=== PATIENT | male | born 1995 | race African-American/Black ===

== ENCOUNTER → 2017-01-06 | Emergency (ER) | payer OTHER ==
[~2017-01-06] MED LIST: IBUPROFEN 600 MG TAB PO ONE
[2017-01-06 13:33] VITALS: TEMP 98
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
[2017-01-06 14:39] VITALS: BP 141/78; PULSE 67; RESP 16; O2SAT 97
== END | disposition home or self-care (01) ==
LOC: CED 13:14
DX: S16.1XXA Strain of muscle, fascia and tendon at neck level, initial encounter (principal); S29.019A Strain of muscle and tendon of unspecified wall of thorax, initial encounter; S39.012A Strain of muscle, fascia and tendon of lower back, initial encounter; S09.90XA Unspecified injury of head, initial encounter; V49.49XA Driver injured in collision with other motor vehicles in traffic accident, initial encounter; Y92.410 Unspecified street and highway as the place of occurrence of the external cause; Y99.8 Other external cause status; Y93.89 Activity, other specified
CPT/HCPCS: 72072-PO